=== PATIENT | male | born 1990 | race Two or more races ===

== ENCOUNTER 2020-05-09 14:40 | Inpatient (IN) | payer OTHER, SELFPAY ==
[2020-05-09] MEDS ORDERED: MORPHINE 4 MG/ML SYR ONE ×2 (15:15→16:47)
[2020-05-09] MEDS ORDERED: ONDANSETRON 4 MG/2 ML VIAL ONE ×4 (15:15→22:54)
[2020-05-09 15:16] LABS: Absolute Lymphocytes (CBC) 1.1 K/uL (0.7-4.9); Basophils % 0.2 % (0-1.3); Lymphocytes % 16.8 % (15.3-44.8); RBC Red Blood Cell Count 4.86 M/uL (4.33-5.43)
[2020-05-09] MEDS ORDERED: KETOROLAC 30 MG/ML INJ ONE ×2 (15:16→19:18)
[2020-05-09] MEDS ORDERED: NA CHLORIDE 0.9% 1,000 ML ONE ×2 (15:16→21:19)
[2020-05-09] MEDS ORDERED: DIAZEPAM 10 MG/2 ML INJ SYRINGE ONE (15:45)
[2020-05-09 15:55] LABS: ALT/SGPT 33 U/L (12-78); AST/SGOT 29 U/L (15-37); Alkaline Phosphatase 63 U/L (45-117); BUN Blood Urea Nitrogen 11 mg/dL (7-18); Bicarbonate 29 mmol/L (21-32); Bilirubin Total 0.4 mg/dL (0.2-1.0); Glucose Level 85 mg/dL (74-106); Potassium 3.6 mmol/L (3.5-5.1); Protein, Total 7.4 g/dL (6.4-8.2); Sodium Level 141 mmol/L (136-145)
--- NOTE | 2020-05-09 16:01 | RAD REPORT ---
EXAM DESCRIPTION: RAD - Forearm Right - 05/09/2020 3:16 pm CLINICAL HISTORY: Pain;Swelling;Deformity COMPARISON: No comparisons FINDINGS: No fracture is identified. There is no dislocation or periosteal reaction noted. No foreign body in the soft tissues. Soft tissue swelling presumed to be from hemorrhage is present a djacent to the mid shaft ulna medial and ventral margin. IMPRESSION: No acute bone finding. Soft tissue swelling from hematoma and/ or edema in the mid forearm
--- NOTE | 2020-05-09 16:55 | RAD REPORT ---
EXAM DESCRIPTION: RAD - Wrist Right 3 View - 05/09/2020 4:39 pm CLINICAL HISTORY: Pain;Swelling, fall COMPARISON: No comparisons FINDINGS: No fracture is identified. Scaphoid contour is slightly irregular but believed to be basel ine for the patient. There is no dislocation or periosteal reaction noted. No foreign body. Soft tiss ue swelling of the mid forearm is present. Edema or contusion extends to the distal forearm dorsal ma rgin of the wrist. IMPRESSION: Soft tissue contusion and edema changes are present. No fracture or acute wrist finding.
[2020-05-09] MEDS ORDERED: HYDROMORPHONE HCL 1 MG/ML INJ ONE (17:10)
[2020-05-09] MEDS ORDERED: ACETAMINOPHEN 500 MG TAB PO PRN (17:28)
[2020-05-09] MEDS ORDERED: Ringers Lactate 1,000 ML IV ONE (18:13)
[2020-05-09] MEDS ORDERED: CEFAZOLIN/SWI 1gm 1 GM/10 ML SYR ONE (18:31)
[2020-05-09] MEDS ORDERED: propofoL 200 MG/20 ML VIAL IV ONE (18:38)
[2020-05-09] MEDS ORDERED: FENTANYL CITR 100 MCG/2 ML ONE (18:38)
[2020-05-09] MEDS ORDERED: LIDOCAINE 2% MPF 5 ML VIAL ONE (18:39)
[2020-05-09] MEDS ORDERED: SUCCINYLCHOLINE 20 MG/ML (10 ML) IV ONE (18:44)
--- NOTE | 2020-05-09 18:46 | CON ---
Date of Consultation: 05/09/2020 History Of Present Illness: This is my first time seeing this patient to my knowledge. 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 He w as brought to the emergency room where he was screaming in pain. X-rays were taken of the forearm, w hich demonstrated no fracture or dislocation. He does have significant soft tissue swelling in the r egion, which is superficial to the ulna or slightly more dorsal. With movement or manipulation of th e wrist in attempts to obtain radiographs, he was screaming in pain. I was called because despite na rcotic administration, the pain was not under control. Physical Examination: He does have what appears to be a large swelling along the ulnar aspect of the forearm and possibly n ear the region of the mobile wad. He is able to move his fingers, although complains of pain. Movem ent of the wrist causes severe pain. He appears to be neurovascularly intact to the hand. There is no swelling of the hand or distal forearm. The volar aspect of the forearm appears to be noninvolved . Assessment And Plan: As he does not speak Slovak, I had the assistance of a person, who is well-radha sed in [place] as well as compartment syndrome, who discussed this with the patient, basically explaine d to him that he could have compartment syndrome and if he does have compartment syndrome, it can cau se significant problems, that the pain is coming from compartment syndrome can hopefully be relieved by doing an emergent hematoma evacuation and probable dorsal forearm fasciotomy, that we would most l ikely have to leave this open and we may need additional procedures including the possibility of a se cond-look irrigation and debridement, possibly even skin graft. The patient says that he understands things as presented and at this time, he is highly enthusiastic about the procedure, which in my exp erience is a very good sign that the procedure is indicated. We do not have a Wing[place] and arterial l ine here, which would be beneficial. However, based on the patient's history and physical examinatio n and understanding based on what we discussed, we will move forward with emergent hematoma evacuatio n. At that time, we will assess the compartments to see whether or not there is what appears to be h lisa or tight compartments, and then proceed with fasciotomies as needed. The patient says he underst ands things as presented and we will attempt to use an official other sales support worker for consent. All of his q uestions are answered. ABHILASH Voice ID: [id number] Report ID: [id number]
[2020-05-09] MEDS ORDERED: dexAMETHasone 10 MG/ML VIAL ONE (19:18)
--- NOTE | 2020-05-09 19:36 | P.BOP ---
Preoperative diagnosis: right forearm hematoma,possible compartment syndrome Postoperative diagnosis: impending comartment syndrome ECU, forearm hematoma Primary procedure: fasciotomy ECU, evacuation of hematoma Estimated blood loss: 10 ccs Anesthesia: General Complications: None Transferred to: Recovery Room Condition: Good
--- NOTE | 2020-05-09 20:01 | OP ---
Date of Procedure: 05/09/2020 Surgeon: Bennie Lopez MD Preoperative Diagnosis: Right forearm hematoma, possible compartment syndrome. Postoperative Diagnoses: Right forearm hematoma, possible compartment syndrome with probable compart ment syndrome involving the extensor carpi ulnaris. Procedure: Right forearm hematoma evacuation with fasciotomy of the extensor carpi ulnaris. Estimated Blood Loss: 20 cc. Complications: There were no complications. Specimens: No pathology specimen sent. Indications For Operation: Mr. Jameson is a 29-year-old male, who does not speak [place]al[place], although we were able to use translators, who has no medical problems or allergies, but apparently fell injuring his right upper extremity. He complained of significant pain as well as a significant amount of swe lling at this area. He was screaming in pain in the Emergency Department. X-rays were taken, which did not demonstrate any fracture or dislocation. I was called as there was some concern that he may have compartment syndrome in his right forearm as he would not move his wrist or his fingers. On exa mination with the emergency room, also there was an obvious clinical deformity in this area. X-rays were negative. On my examination, he was able to move his fingers and his thumb quite well, however, movement of the wrist causes pain along the dorsal aspect of the forearm, specifically in the region of the extensor carpi ulnaris. He did have a large swelling of the ulnar aspect of the forearm cent ered more dorsally. With the help of a ruby on rails developer, we explained that compartment syndrome is a possi bility and if so, could lead to injury to nerves, vessels, and muscle. We also explained that evacua tion of the hematoma and probable compartment release could be performed. The patient consents to th is basically in tremendous pain and wanting relief. He says he understands things as presented with the assistance of the ruby on rails developer. Risks were also discussed. Procedure In Detail: The patient was taken to the operating room, placed in supine position, general anesthesia was obtained by staff. Following this, well-padded tourniquet was placed on superior rig ht arm. Right upper extremity was then prepped and draped in usual sterile fashion. Following this, the arm was then elevated, but not exsanguinated and the tourniquet was raised. The incision for st duffy dorsal forearm fasciotomy is marked out, however, the point of maximal swelling is somewhat mo re ulnarward and decision was made to at least begin the incision in this area. This was then taken down carefully through skin and soft tissue. There was quite a bit of hematoma as well as soft tissu e swelling in this area. This was evacuated. Following this, both the volar musculature on the vola r side of the ulna as well as the more dorsal musculature was palpated. The flexor carpi ulnaris darline eared to be quite soft, however, the extensor carpi ulnaris did appear to be quite firm. Decision wa s made to move forward with a fasciotomy of this muscle directly in line with the ulna. This was don e under direct vision. There was some herniation of the muscle, but I would not describe that as alana ng severe. Following this, the forearm compartments both volarly and dorsally were very soft. Decis ion was made not to proceed with fasciotomy of more muscles. Also after the liberation of the hemato ma, skin is quite loose and decision was made to gently tack it back together using livan as this w ould preclude the need for possible grafting or wound care. The patient was then placed in extremely well-padded sterile dressing as well as a posterior splint, which includes the wrist. He was then a wakened and taken to recovery room in good condition. There were no complications. /ANAND Voice ID: [id number] Report ID: [id number]
[2020-05-09 20:55] VITALS: BMI 19.9
[2020-05-09] MEDS: NA CHLORIDE 0.9% 1,000 ML IV SCH (21:11)
[2020-05-09] MEDS: ONDANSETRON 4 MG/2 ML VIAL IV PRN (22:41)
[2020-05-09] MEDS: MORPHINE 2 MG/ML SYR IV PRN (22:42)
[2020-05-09] MEDS ORDERED: MORPHINE 2 MG/ML SYR ONE (22:54)
--- NOTE | 2020-05-10 04:14 | ER ---
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 Coronavirus screen: Client denies travel out of the [place] in the last 14 days. Ebola Screen: Patient negative for fever greater than or equal to 101.5 degrees Fahrenheit, and additional compatible Ebola Virus Disease symptoms Patient denies exposure to infectious person. Patient denies travel to an Ebola-affected area in the 21 days before illness onset. No symptoms or risks identified at this time. Initial Sepsis Screen: Does the patient meet any 2 criteria? No. Patient's initial sepsis screen is negative. Does the patient have a suspected source of infection? No. Patient's initial sepsis screen is negative. Risk Assessment: Do you want to hurt yourself or someone else? Patient reports no desire to harm self or others. Onset of symptoms was May 09, 2020. 14:42 Method Of Arrival: EMS: [facility] em 14:42 Acuity: JULIANA 4 em 16:40 Acuity: JULIANA 2 ss Historical: - Allergies: 14:45 No Known Allergies; em - PMHx: 14:45 None; em - PSHx: 14:45 None; em - Immunization history:: Adult Immunizations unknown. - Social history:: Smoking status: Patient denies any tobacco usage or history of. Screenin:42 Abuse screen: Denies threats or abuse. Nutritional screening: No deficits noted. em Tuberculosis screening: No symptoms or risk factors identified. Fall Risk None identified. Assessment: 14:48 General: Appears in no apparent distress. uncomfortable, Behavior is calm, cooperative, em appropriate for age. Pain: Complains of pain in palmar aspect of right forearm and dorsal aspect of right forearm Pain currently is 10 out of 10 on a pain scale. Neuro: Level of Consciousness is awake, alert, obeys commands, Oriented to person, place, time, situation. Cardiovascular: Capillary refill < 3 seconds Patient's skin is warm and dry. Pulses are all present. Respiratory: Airway is patent Respiratory effort is even, unlabored, Respiratory pattern is regular. Derm: Skin is intact, is healthy with good turgor, Skin is pink, warm \T\ dry. Musculoskeletal: Circulation, motion, and sensation intact. Capillary refill < 3 seconds, Range of motion: limited in right wrist Swelling present in palmar aspect of right forearm and dorsal aspect of right forearm. 15:44 Reassessment: Patient appears in no apparent distress at this time. placed in a finger em traction split. 16:47 Reassessment: Patient appears in no apparent distress at this time. Robert at em bedside. Neuro: Level of Consciousness is awake, alert, obeys commands, Oriented to person, place, time, situation. Cardiovascular: No deficits noted. Pulses are all present. Respiratory: Airway is patent Respiratory effort is even, unlabored. Derm: Skin is intact, is healthy with good turgor, Skin is pink, warm \T\ dry. Musculoskeletal: Swelling present in palmar aspect of right forearm and dorsal aspect of right forearm. 17:11 Reassessment: Dr. Lopez at bedside. 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 ID # [id number]. em 17:53 Reassessment: report given to GELA Correa and pt wheeled to OR, placed in gown. em Vital Signs: 14:42 BP 124 / 81; Pulse 73; Resp 18; Temp 97.9; Pulse Ox 99% on R/A; em 14:48 Weight 56 kg (R); Pain 10/10; em 16:01 BP 112 / 80; Pulse 60; Resp 17; Pulse Ox 100% on R/A; tw2 17:05 BP 114 / 75; Pulse 76; Resp 18; Pulse Ox 97% on R/A; em Bernadine Coma Score: 14:48 Eye Response: spontaneous(4). Verbal Response: oriented(5). Motor Response: obeys em commands(6). Total: 15. 16:01 Eye Response: spontaneous(4). Verbal Response: oriented(5). Motor Response: obeys em commands(6). Total: 15. 17:05 Eye Response: spontaneous(4). Verbal Response: oriented(5). Motor Response: obeys em commands(6). Total: 15. Trauma Score (Adult): 14:48 Eye Response: spontaneous(1); Verbal Response: oriented(1); Motor Response: obeys em commands(2); Systolic BP: > 89 mm Hg(4); Respiratory Rate: 10 to 29 per min(4); Bernadine Score: 15; Trauma Score: 12 16:01 Eye Response: spontaneous(1); Verbal Response: oriented(1); Motor Response: obeys em commands(2); Systolic BP: > 89 mm Hg(4); Respiratory Rate: 10 to 29 per min(4); Bernadine Score: 15; Trauma Score: 12 17:05 Eye Response: spontaneous(1); Verbal Response: oriented(1); Motor Response: obeys em commands(2); Systolic BP: > 89 mm Hg(4); Respiratory Rate: 10 to 29 per min(4); Carroll Score: 15; Trauma Score: 12 ED Course: 14:41 Patient arrived in ED. em 14:42 Alphonse Jones MD is Attending Physician. harrison 14:42 Patient has correct armband on for positive identification. Bed in low position. Call em light in reach. Adult w/ patient. Pulse ox on. NIBP on. 14:42 Maintain EMS IV. Dressing intact. Good blood return noted. Site clean \T\ dry. Gauge \T\ em site: 20 LAC. 14:45 Triage completed. em 14:45 Arm band placed on. em 14:53 Zane Nichole, RN is Primary Nurse. em 15:05 Initial lab(s) drawn, by me, sent to lab. em1 15:13 Forearm Right XRAY In Process Unspecified. EDMS 17:25 Karen Jimenez MD is Hospitalizing Provider. harrison 18:02 No provider procedures requiring assistance completed. Patient admitted, IV remains in em place. Administered Medications: 15:04 Drug: Zofran (Ondansetron) 4 mg Route: IVP; Site: left antecubital; tw2 15:44 Follow up: Response: No adverse reaction em 15:06 Drug: NS 0.9% 1000 ml Route: IV; Rate: 1 bolus; Site: left antecubital; tw2 15:06 Drug: TORadol 30 mg Route: IVP; Site: left antecubital; tw2 15:43 Follow up: Response: No adverse reaction em 15:08 Drug: morphine 4 mg {Note: RASS 0.} Route: IVP; Site: left antecubital; tw2 15:43 Follow up: Response: No adverse reaction; Marked relief of symptoms; Pain is unchanged, em physician notified; RASS: Alert and Calm (0) 15:41 Drug: Valium 5 mg Route: IVP; Site: left antecubital; em 16:20 Follow up: Response: No adverse reaction em 16:38 Drug: morphine 4 mg Route: IVP; Site: left antecubital; em 16:53 CANCELLED (Duplicate Order): morphine 4 mg IVP once; RASS on ADMIN: Combtv4, Very harrison Agttd3, Agttd2, Rstlss1, AlertClm0, Drwsy-1, Lt Sdtn-2, Mod Sdtn-3, Dp Sdtn-4, UnArsble-5 17:00 Drug: Zofran (Ondansetron) 4 mg Route: IVP; Site: left antecubital; em 17:03 Drug: Dilaudid 1 mg Route: IVP; Site: left antecubital; em Outcome: 17:32 Decision to Hospitalize by Provider. [facility] 18:02 Admitted to OR accompanied by nurse, family with patient, via stretcher, with chart, em Report called to GELA Correa 18:02 Condition: good 18:02 Instructed on the need for admit, Demonstrated understanding of instructions. 18:08 Patient left the ED. 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 em em 16 14:48 Musculoskeletal: Capillary refill < 3 seconds, Range of motion: limited in right em wrist Swelling present in palmar aspect of right forearm and dorsal aspect of right forearm em
--- NOTE | 2020-05-10 04:14 | EDPHYS ---
Physician Documentation [facility] Name: Iraj Jameson Age: 29 yrs Sex: Male : 1990 Arrival Date: 05/09/2020 Time: 14:41 Bed 3 Private MD: ED Physician Alphonse Jones HPI: 05/09 14:51 This 29 yrs old Other Male presents to ER via EMS with complaints of Arm Injury. harrison 14:51 The patient or guardian complains of contusion, decreased range of motion, deformity, harrison pain. The complaints affect the dorsal aspect of right forearm and palmar aspect of right forearm. Context: The problem was sustained at work. Onset: The symptoms/episode began/occurred just prior to arrival. Treatment prior to arrival includes: sling, splinting the affected extremity. Modifying factors: The symptoms are alleviated by nothing. remaining still, the symptoms are aggravated by movement, bending arm. Associated signs and symptoms: The patient has no apparent associated signs or symptoms. The patient has not experienced similar symptoms in the past. Historical: - Allergies: 14:45 No Known Allergies; em - PMHx: 14:45 None; em - PSHx: 14:45 None; em - Immunization history:: Adult Immunizations unknown. - Social history:: Smoking status: Patient denies any tobacco usage or history of. ROS: 14:53 Constitutional: Negative for fever, chills, and weight loss, Eyes: Negative for injury, harrison pain, redness, and discharge, ENT: Negative for injury, pain, and discharge, Neck: Negative for injury, pain, and swelling, Cardiovascular: Negative for chest pain, palpitations, and edema, Respiratory: Negative for shortness of breath, cough, wheezing, and pleuritic chest pain, Abdomen/GI: Negative for abdominal pain, nausea, vomiting, diarrhea, and constipation, Back: Negative for injury and pain, : Negative for injury, bleeding, discharge, and swelling, Skin: Negative for injury, rash, and discoloration, Neuro: Negative for headache, weakness, numbness, tingling, and seizure, Psych: Negative for depression, anxiety, suicide ideation, homicidal ideation, and hallucinations, Allergy/Immunology: Negative for hives, rash, and allergies, Endocrine: Negative for neck swelling, polydipsia, polyuria, polyphagia, and marked weight changes. 14:53 MS/extremity: Positive for decreased range of motion, pain, swelling, tenderness, of the dorsal aspect of right forearm and palmar aspect of right forearm. Exam: 14:53 Constitutional: This is a well developed, well nourished patient who is awake, alert, harrison and in no acute distress. Head/Face: Normocephalic, atraumatic. Eyes: Pupils equal round and reactive to light, extra-ocular motions intact. Lids and lashes normal. Conjunctiva and sclera are non-icteric and not injected. Cornea within normal limits. Periorbital areas with no swelling, redness, or edema. ENT: Nares patent. No nasal discharge, no septal abnormalities noted. Tympanic membranes are normal and external auditory canals are clear. Oropharynx with no redness, swelling, or masses, exudates, or evidence of obstruction, uvula midline. Mucous membranes moist. Neck: Trachea midline, no thyromegaly or masses palpated, and no cervical lymphadenopathy. Supple, full range of motion without nuchal rigidity, or vertebral point tenderness. No Meningismus. Chest/axilla: Normal chest wall appearance and motion. Nontender with no deformity. No lesions are appreciated. Cardiovascular: Regular rate and rhythm with a normal S1 and S2. No gallops, murmurs, or rubs. Normal PMI, no JVD. No pulse deficits. Respiratory: Lungs have equal breath sounds bilaterally, clear to auscultation and percussion. No rales, rhonchi or wheezes noted. No increased work of breathing, no retractions or nasal flaring. Abdomen/GI: Soft, non-tender, with normal bowel sounds. No distension or tympany. No guarding or rebound. No evidence of tenderness throughout. Back: No spinal tenderness. No costovertebral tenderness. Full range of motion. Male : Normal genitalia with no discharge or lesions. Skin: Warm, dry with normal turgor. Normal color with no rashes, no lesions, and no evidence of cellulitis. Neuro: Awake and alert, GCS 15, oriented to person, place, time, and situation. Cranial nerves II-XII grossly intact. Motor strength 5/5 in all extremities. Sensory grossly intact. Cerebellar exam normal. Normal gait. Psych: Awake, alert, with orientation to person, place and time. Behavior, mood, and affect are within normal limits. 14:53 Musculoskeletal/extremity: ROM: limited active range of motion due to pain, limited passive range of motion due to pain, Circulation is intact in all extremities. Sensation intact. Severe pain noted. Compartment Syndrome exam of affected extremity: is normal. Vital Signs: 14:42 BP 124 / 81; Pulse 73; Resp 18; Temp 97.9; Pulse Ox 99% on R/A; em 14:48 Weight 56 kg (R); Pain 10/10; em 16:01 BP 112 / 80; Pulse 60; Resp 17; Pulse Ox 100% on R/A; tw2 17:05 BP 114 / 75; Pulse 76; Resp 18; Pulse Ox 97% on R/A; em Butler Coma Score: 14:48 Eye Response: spontaneous(4). Verbal Response: oriented(5). Motor Response: obeys em commands(6). Total: 15. 16:01 Eye Response: spontaneous(4). Verbal Response: oriented(5). Motor Response: obeys em commands(6). Total: 15. 17:05 Eye Response: spontaneous(4). Verbal Response: oriented(5). Motor Response: obeys em commands(6). Total: 15. Trauma Score (Adult): 14:48 Eye Response: spontaneous(1); Verbal Response: oriented(1); Motor Response: obeys em commands(2); Systolic BP: > 89 mm Hg(4); Respiratory Rate: 10 to 29 per min(4); Butler Score: 15; Trauma Score: 12 16:01 Eye Response: spontaneous(1); Verbal Response: oriented(1); Motor Response: obeys em commands(2); Systolic BP: > 89 mm Hg(4); Respiratory Rate: 10 to 29 per min(4); Bernadine Score: 15; Trauma Score: 12 17:05 Eye Response: spontaneous(1); Verbal Response: oriented(1); Motor Response: obeys em commands(2); Systolic BP: > 89 mm Hg(4); Respiratory Rate: 10 to 29 per min(4); Bernadine Score: 15; Trauma Score: 12 MDM: 14:42 Patient medically screened. [facility] 14:55 Differential diagnosis: closed fracture, contusion. Data reviewed: vital signs, nurses harrison notes, radiologic studies, plain films. 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 Test interpretation: by ED physician or midlevel provider: plain radiologic studies. Counseling: I had a detailed discussion with the patient and/or guardian regarding: the historical points, exam findings, and any diagnostic results supporting the discharge/admit diagnosis, the presence of at least one elevated blood pressure reading (>120/80) during this emergency department visit, lab results, radiology results, the need for outpatient follow up. 16:41 Physician consultation: Bennie Lopez MD was called at 16:41, was contacted at snw 16:41, regarding patient's condition, need to evaluate the patient as soon as possible. 05/09 14:51 Order name: CBC with Diff; Complete Time: 15:39 [facility] 05/09 14:51 Order name: Comprehensive Metabolic Panel; Complete Time: 16:29 [facility] 05/09 14:53 Order name: Forearm Right XRAY; Complete Time: 16:30 [facility] 05/09 16:01 Order name: Wrist Right 3 View XRAY [facility] 05/09 16:57 Order name: Extremity Venous Unilateral Ltd [facility] 05/09 17:01 Order name: Add On-Lab 05/09 16:57 Order name: Extrmty Nonvasular Limited [facility] 05/09 14:51 Order name: Ice pack; Complete Time: 14:53 [facility] 05/09 14:53 Order name: NPO; Complete Time: 14:53 [facility] Administered Medications: 15:04 Drug: Zofran (Ondansetron) 4 mg Route: IVP; Site: left antecubital; tw2 15:44 Follow up: Response: No adverse reaction em 15:06 Drug: NS 0.9% 1000 ml Route: IV; Rate: 1 bolus; Site: left antecubital; tw2 15:06 Drug: TORadol 30 mg Route: IVP; Site: left antecubital; tw2 15:43 Follow up: Response: No adverse reaction em 15:08 Drug: morphine 4 mg {Note: RASS 0.} Route: IVP; Site: left antecubital; tw2 15:43 Follow up: Response: No adverse reaction; Marked relief of symptoms; Pain is unchanged, em physician notified; RASS: Alert and Calm (0) 15:41 Drug: Valium 5 mg Route: IVP; Site: left antecubital; em 16:20 Follow up: Response: No adverse reaction em 16:38 Drug: morphine 4 mg Route: IVP; Site: left antecubital; em 16:53 CANCELLED (Duplicate Order): morphine 4 mg IVP once; RASS on ADMIN: Combtv4, Very harrison Agttd3, Agttd2, Rstlss1, AlertClm0, Drwsy-1, Lt Sdtn-2, Mod Sdtn-3, Dp Sdtn-4, UnArsble-5 17:00 Drug: Zofran (Ondansetron) 4 mg Route: IVP; Site: left antecubital; em 17:03 Drug: Dilaudid 1 mg Route: IVP; Site: left antecubital; em Disposition: 05/10 07:50 Co-signature as Attending Physician, Alphonse Jones MD I agree with the assessment and [facility] plan of care. Disposition: 05/09/20 17:32 Hospitalization ordered by Karen Jimenez for Inpatient Admission. Preliminary diagnosis are Fall due to bumping against object, Pain in right forearm - severe passive and active range of motion. - Bed requested for Telemetry/MedSurg (Inpatient). - Status is Inpatient Admission. em - Condition is Fair. - Problem is new. - Symptoms have improved. Signatures: Dispatcher [employer] Alphonse Meadows MD MD cha Waters, Shelly, MARINA PORTER-C MARINA PORTER-[place] Zane Nichole RN RN Jenelle Marshall RN RN tw2 Corrections: (The following items were deleted from the chart) 12 16:53 16:53 morphine 4 mg IVP once; RASS on ADMIN: Combtv4, Very Agttd3, Agttd2, Rstlss1, harrison AlertClm0, Drwsy-1, Lt Sdtn-2, Mod Sdtn-3, Dp Sdtn-4, UnArsble-5 ordered. [facility] 18:08 17:32 Hospitalization Ordered by Karen Jimenez MD for Inpatient Admission. Preliminary em diagnosis is Fall due to bumping against object; Pain in right forearm - severe passive and active range of motion. Bed requested for Telemetry/MedSurg (Inpatient). Status is Inpatient Admission. Condition is Fair. Problem is new. Symptoms have improved. harrison
[2020-05-10 05:23] LABS: Absolute Lymphocytes (CBC) 0.7 K/uL (0.7-4.9); Basophils % 0.7 % (0-1.3); Hematocrit 42.9 % (39.6-49.0); Lymphocytes % 14.4 % (15.3-44.8); MPV 8.1 fL (7.6-11.3); RBC Red Blood Cell Count 4.97 M/uL (4.33-5.43)
[2020-05-10 05:27] LABS: Protime INR 1.06
[2020-05-10 05:48] LABS: ALT/SGPT 29 U/L (12-78); AST/SGOT 26 U/L (15-37); Albumin 3.6 g/dL (3.4-5.0); Alkaline Phosphatase 65 U/L (45-117); BUN Blood Urea Nitrogen 12 mg/dL (7-18); Bicarbonate 26 mmol/L (21-32); Bilirubin Total 0.5 mg/dL (0.2-1.0); Glucose Level 125 mg/dL (74-106); Potassium 4.2 mmol/L (3.5-5.1); Protein, Total 7.1 g/dL (6.4-8.2); Sodium Level 142 mmol/L (136-145)
[2020-05-10] MEDS: MORPHINE 2 MG/ML SYR IV PRN ×3 (08:20→21:51)
[2020-05-10] MEDS: ONDANSETRON 4 MG/2 ML VIAL IV PRN ×2 (08:22→21:51)
[2020-05-10] MEDS: NA CHLORIDE 0.9% 1,000 ML IV SCH ×2 (08:22→20:40)
[2020-05-10] MEDS ORDERED: MORPHINE 2 MG/ML SYR ONE ×2 (08:33→12:53)
[2020-05-10] MEDS ORDERED: NA CHLORIDE 0.9% 1,000 ML ONE (08:33)
[2020-05-10] MEDS ORDERED: ONDANSETRON 4 MG/2 ML VIAL ONE (08:33)
[2020-05-10 10:57] LABS: Creatine Phosphokinase 218 U/L (39-308)
--- NOTE | 2020-05-10 13:06 | P.HP ---
Certification for Inpatient Patient admitted to: Inpatient With expected LOS: >2 Midnights Patient will require the following post-hospital care: None Practitioner: I am a practitioner with admitting privileges, knowledge of patient current condition, hospital course, and medical plan of care. Services: Services provided to patient in accordance with Admission requirements found in Title 42 Section 412.3 of the Code of Federal Regulations Patient History Date of Service: 05/09/20 Reason for admission: Compartment syndrome to the right arm History of Present Illness: Patient is a 29-year-old gentleman who was working on a boat when he fell. He landed on his right upper extremity and started having excruciating pain. His pain was not letting up so they brought him into the emergency room were he was found have a large hematoma. Orthopedic came out to evaluate the patient it on their exam it was felt patient possibly had compartment syndrome. Patient was taken to the operating room emergently for a fasciotomy. Patient otherwise denies any medical history. He is not complaining of any numbness or tingling in his hand. He does feel there swollen and has some pain whenever he moves his fingers. But he states he is feeling better after the surgery. He will need to be admitted for inpatient hospitalization for treatment of the compartment syndrome. Will monitor his CPK & other lab testing as well. Allergies No Known Allergies Allergy (Unverified 05/09/20 17:40) Home Medications: NK [No Home Meds] 05/09/20 - Past Medical/Surgical History Has patient received pneumonia vaccine in the past: No Diabetic: No Past Medical History: Patient denies medical history Past Surgical History: Patient denies surgical history - Family History Father Family History: Reviewed- Non-Contributory - Social History Smoking Status: Never smoker Alcohol use: No CD- Drugs: No Caffeine use: No Place of Residence: Home Review of Systems 10-point ROS is otherwise unremarkable Physical Examination - Vital Signs Temperature: 98.3 F Blood Pressure: 110/68 Pulse: 75 Respirations: 18 Pulse Ox (%): 98 - Physical Exam General: Alert, In no apparent distress, Oriented x3 HEENT: Atraumatic, PERRLA, Mucous membr. moist/pink, EOMI, Sclerae nonicteric Neck: Supple, 2+ carotid pulse no bruit, No LAD, Without JVD or thyroid abnormality Respiratory: Clear to auscultation bilaterally, Normal air movement Cardiovascular: Regular rate/rhythm, Normal S1 S2, No murmurs Gastrointestinal: Normal bowel sounds, Soft and benign, Non-distended, No tenderness Musculoskeletal: No clubbing, Swelling, Erythema, Tenderness, Warmth, Cast in place Integumentary: No rashes Neurological: Normal gait, Normal speech, Normal strength at 5/5 x4 extr (Except of the right upper extremity), Normal tone, Sensation intact, Cranial nerves 3- 12 intact, Normal affect Lymphatics: No axilla or inguinal lymphadenopathy - Studies Laboratory Data (last 24 hrs) 05/09/20 15:00: Sodium 141, Potassium 3.6, BUN 11, Creatinine 0.90, Glucose 85, Total Bilirubin 0.4, AST 29, ALT 33, Alkaline Phosphatase 63 05/09/20 15:00: WBC 6.7, Hgb 14.3, Hct 42.0, Plt Count 219 Assessment & Plan - Problems (Diagnosis) (1) Compartment syndrome of right upper extremity Current Visit: Yes Status: Acute Qualifiers: Encounter type: initial encounter Qualified Code(s): T79.A11A - Traumatic compartment syndrome of right upper extremity, initial encounter (2) H/O fasciotomy Current Visit: Yes Status: Acute - Plan 1. Continue with IV antibiotic 2. Continue with local wound care 3. Appreciate Orthopedic assistance in patient's care 4. Continue with gentle IV hydration 5. Monitor for rhabdomyolysis 6. Pain control 7. GI and DVT prophylaxis Discharge Plan: Home Plan to discharge in: Greater than 2 days - Advance Directives Does patient have a Living Will: No Does patient have a Durable POA for Healthcare: No - Code Status/Comfort Care Code Status Assessed: Yes Code Status: Full Code Critical Care: No Time Spent Managing PTS Care (In Minutes): 35
--- NOTE | 2020-05-10 13:09 | P.PN ---
Subjective Date of Service: 05/10/20 Patient is clinically doing well with no new complaints. Patient is still having some pain. Anticipate discharge tomorrow if he continues to do well. Though paresthesia or weakness noted. Capillary refills are good. Review of Systems 10-point ROS is otherwise unremarkable Physical Examination - Vital Signs Temperature: 98.3 F Blood Pressure: 110/68 Pulse: 75 Respirations: 18 Pulse Ox (%): 98 - Physical Exam General: Alert, In no apparent distress, Oriented x3 HEENT: Atraumatic, PERRLA, EOMI Neck: Supple, JVD not distended Respiratory: Clear to auscultation bilaterally, Normal air movement Cardiovascular: Regular rate/rhythm, Normal S1 S2, No murmurs Gastrointestinal: Normal bowel sounds, Soft and benign, Non-distended, No tenderness Musculoskeletal: No clubbing, No tenderness, Swelling Neurological: Normal speech, Normal tone, Normal affect Lymphatics: No axilla or inguinal lymphadenopathy - Studies Laboratory Data (last 24 hrs) 05/09/20 15:00: Sodium 141, Potassium 3.6, BUN 11, Creatinine 0.90, Glucose 85, Total Bilirubin 0.4, AST 29, ALT 33, Alkaline Phosphatase 63 05/09/20 15:00: WBC 6.7, Hgb 14.3, Hct 42.0, Plt Count 219 Medications List Reviewed: Yes Assessment & Plan - Problems (Diagnosis) (1) Compartment syndrome of right upper extremity Status: Acute Qualifiers: Encounter type: initial encounter Qualified Code(s): T79.A11A - Traumatic compartment syndrome of right upper extremity, initial encounter (2) H/O fasciotomy Status: Acute - Plan 1. Continue with IV antibiotic 2. Continue with local wound care 3. Appreciate Orthopedic assistance in patient's care 4. Continue with gentle IV hydration 5. Monitor for rhabdomyolysis 6. Pain control 7. GI and DVT prophylaxis - Advance Directives Does patient have a Living Will: No Does patient have a Durable POA for Healthcare: No - Code Status/Comfort Care Code Status: Full Code
--- NOTE | 2020-05-10 14:08 | PN ---
History Of Present Illness: The patient is seen in the ER today, which was used as a holding area as an inpatient for ICU bed. He does have some bleeding from his dressing, and his dressing and splint were taken down. His incision was clean, dry, and intact without sign of problems and he has had so me bleeding from this area. However, this was not robust. The dressing was then reapplied in noncom pressive away as well as with a splint. It should be noted that he does have easy motion of his thum b and fingers today, although he is complaining of pain. He has, I would say significantly more pain to gentle palpation of his forearm that he does with movement of his fingers. Also removal of the s oft dressing and the gauze caused a significant amount of discomfort. This appears to be more associ ated with discomfort from the incision and discomfort from the skin that would be reflective of ronald rtment syndrome. He is also neurovascularly intact. At this time I believe that his major compartme nt syndrome has passed. I think that if they want to continue to observe him, that would be fine, bu t otherwise he will need his livan taken out in approximately 2 weeks, probably it be a good time t o take his splint off at that time. He could take a splint earlier; however, given the amount of delia n that he has, I think it is a good armor for him also directly protects the incision as well. I annie l attempt to speak with Dr. Tony SINGLETON/ANAND Voice ID: [id number] Report ID: [id number]
[2020-05-10] MEDS: CEFAZOLIN/SWI 2gm 2 GM/20 ML SYR IVP SCH (16:24)
[2020-05-11] MEDS: CEFAZOLIN/SWI 2gm 2 GM/20 ML SYR IVP SCH ×2 (01:00→09:00)
[2020-05-11] MEDS: NA CHLORIDE 0.9% 1,000 ML IV SCH (02:00)
[2020-05-11] MEDS ORDERED: CEFAZOLIN/SWI 1gm 2 GM/20 ML SYR ONE (02:02)
[2020-05-11 12:06] VITALS: O2SAT 97
[2020-05-18 15:39] VITALS: BP 110/68; TEMP 98.3
--- NOTE | 2020-05-18 15:41 | P.DS ---
Discharge Date: 05/11/20 Disposition: ROUTINE DISCHARGE Discharge Condition: GOOD Reason for Admission: Compartment syndrome to the right arm Consultations: Orthopedic surgery - Problems (1) Compartment syndrome of right upper extremity Status: Acute Qualifiers: Encounter type: initial encounter Qualified Code(s): T79.A11A - Traumatic compartment syndrome of right upper extremity, initial encounter (2) H/O fasciotomy Status: Acute Brief History of Present Illness: Patient is a 29-year-old gentleman who was working on a boat when he fell. He landed on his right upper extremity and started having excruciating pain. His pain was not letting up so they brought him into the emergency room were he was found have a large hematoma. Orthopedic came out to evaluate the patient it on their exam it was felt patient possibly had compartment syndrome. Patient was taken to the operating room emergently for a fasciotomy. Patient otherwise denies any medical history. He is not complaining of any numbness or tingling in his hand. He does feel there swollen and has some pain whenever he moves his fingers. But he states he is feeling better after the surgery. He will need to be admitted for inpatient hospitalization for treatment of the compartment syndrome. Will monitor his CPK & other lab testing as well. Hospital Course: Patient has done well during hospital stay. Patient is clinically doing well. Patient will need to follow up with physician in [place] to get the livan removed. Patient will be flying to [facility] over the next 24-48 hours. Will give patient pain medication and antibiotics to take at discharge. Vital Signs/Physical Exam: Temp Pulse Resp BP Pulse Ox 98.3 F 75 18 110/68 98 05/18/20 15:38 05/18/20 15:38 05/18/20 15:38 05/18/20 15:38 05/18/20 15:38 General: Alert, In no apparent distress, Oriented x3 Laboratory Data at Discharge: WBC 4.8 K/uL (4.3-10.9) D 05/10/20 05:10 Hgb 14.5 g/dL (13.6-17.9) 05/10/20 05:10 Hct 42.9 % (39.6-49.0) 05/10/20 05:10 Plt Count 208 K/uL (152-406) 05/10/20 05:10 PT 12.5 SECONDS (9.5-12.5) 05/10/20 05:10 INR 1.06 05/10/20 05:10 APTT 34.5 SECONDS (24.3-36.9) 05/10/20 05:10 Sodium 142 mmol/L (136-145) 05/10/20 05:10 Potassium 4.2 mmol/L (3.5-5.1) 05/10/20 05:10 BUN 12 mg/dL (7-18) 05/10/20 05:10 Creatinine 0.85 mg/dL (0.55-1.3) 05/10/20 05:10 Glucose 125 mg/dL (74-106) H 05/10/20 05:10 Total Bilirubin 0.5 mg/dL (0.2-1.0) 05/10/20 05:10 AST 26 U/L (15-37) 05/10/20 05:10 ALT 29 U/L (12-78) 05/10/20 05:10 Alkaline Phosphatase 65 U/L (45-117) 05/10/20 05:10 Home Medications: Cephalexin 500 mg PO Q12H #20 capsule 05/11/20 Codeine/APAP [Tylenol W/Codeine #3 tab] 1 tab PO Q6HP PRN #20 tab 05/11/20 New Medications: Cephalexin 500 mg PO Q12H #20 capsule Codeine/APAP [Tylenol W/Codeine #3 tab] 1 tab PO Q6HP PRN #20 tab PRN Reason: Pain Patient Discharge Instructions: OK TO DC IV AND DC HOME. FOLLOW-UP WITH PCP IN [place] TO HAVE LIVAN REMOVED. CONTINUE ANTIBIOTICS FOR 5 MORE DAYS Diet: Regular Activity: Ad nany Followup: Unknown,U [Primary Care Provider] - Time spent managing pt's care (in minutes): 35
== END 2020-05-11 13:20 | disposition home or self-care (01) | DRG 909 ==
LOC: ER 14:40 → ERHOLD 17:43 → 2ND 05-10 18:03
PROVIDERS: ADMIT Hospitalist; ATTEND Hospitalist
PROC: 0KC90ZZ Extirpation of Matter from Right Lower Arm and Wrist Muscle, Open Approach (ICD-10-PCS; principal; 2020-05-09 18:00)
DX: T79.A11A Traumatic compartment syndrome of right upper extremity, initial encounter (principal); S50.11XA Contusion of right forearm, initial encounter; W18.00XA Striking against unspecified object with subsequent fall, initial encounter; Y93.E5 Activity, floor mopping and cleaning; Y92.814 Boat as the place of occurrence of the external cause; Z20.828 Contact with and (suspected) exposure to other viral communicable diseases
CPT/HCPCS: 36415; 80053; 82550; 85025; 85610; 85730; 96374; 96375; 99285; J0330; J0690; J1100; J1170; J2270; J2405; J2704; J3010; J3360; J7030; J7120; U0003